=== PATIENT | female | born 1990 | race African-American/Black ===

== ENCOUNTER 2016-12-24 13:19 | Emergency (ER) | payer SELFPAY ==
[~2016-12-24] VITALS: Ht 162.6 cm; Wt 81.8 kg
[~2016-12-24 13:19] MED LIST: (None)3.5 GM OP; AMOXICILLIN500 MG OR; AMOXICILLIN500 MG PO; CEPHALEXIN500 MG PO; CIPRODEX1 ML AS; CORTISPORIN OP7.5 ML OP; DOXYCYCL HYC100 MG PO; FLOXIN OTIC0.3 % OT; LORTAB 5/3255 MG PO; METHERGINE0.2 MG PO; NO MEDS; PREVACID30 M1 OR; REGLAN10 MG OR; TOPAMAX25 MG PO; ULTRAM50 M1 PO
[2016-12-24] MEDS ORDERED: MOTRIN400 MG PO (14:27)
[2016-12-24] MEDS ORDERED: AUGMENTIN875TAB PO (14:27)
[2016-12-24 14:30] VITALS: BP 128/75
== END 2016-12-24 14:30 | disposition home or self-care (01) | DRG 159 ==
LOC: ED 13:19
DX: K08.89 Other specified disorders of teeth and supporting structures (principal); K03.81 Cracked tooth

== ENCOUNTER → 2018-07-09 | Outpatient (REF) | payer OTHER ==
[~2018-07-09] MED LIST changes: +AUGMENTIN875TAB PO; +MOTRIN400 MG PO
== END | disposition home or self-care (01) ==
LOC: LAB 08:36
PROVIDERS: ATTEND Obstetrics & Gynecology
DX: Z34.82 Encounter for supervision of other normal pregnancy, second trimester (principal)

== ENCOUNTER 2019-12-07 16:52 | Observation (INO) | payer SELFPAY ==
[~2019-12-07] VITALS: Ht 162.6 cm; Wt 89.8 kg
--- NOTE | 2019-12-07 16:55 | NUR ---
PATIENT SEEN IN TRIAGE AND IS AWATING ROOM ASSIGNMENT
--- NOTE | 2019-12-07 17:48 | NUR ---
PATIENT TO ROOM 9 FOR EXAM MD NOTIFIED OF PATIENT STATUS
--- NOTE | 2019-12-07 18:30 | NUR ---
AFTER TWO ATTEMPTS OF TRYING TO START IV AND WAS UNSUCCESSFUL, ASSISTANCE IS ASKED FROM CHARGE NURSE. MD NOTIFIED OF TREATMENT DELAY
--- NOTE | 2019-12-07 18:50 | NUR ---
GAVE REPORT TO CARI Holley
[2019-12-07 19:26] LABS: HEMATOCRIT 36.1 % (37.0-47.0); HEMOGLOBIN 11.1 g/dl (12.0-16.0); IMMATURE GRANULOCYTES 0.4 % (0.0-5.0); MEAN CORPUSCULAR HGB 25.5 pG CALC (26.0-32.0); MEAN CORPUSCULAR HGB CONC 30.7 g/dL CAL (32.0-36.0); NEUT# 13.6 thou/uL (2.00-7.15); RED BLOOD COUNT 4.36 mill/uL (4.20-5.60)
[2019-12-07 19:29] LABS: MEAN CELL VOLUME 82.8 fL CALC (80.0-100.0)
[2019-12-07 19:30] LABS: URINE BILIRUBIN - DIPSTICK NEGATIVE (NEGATIVE); URINE BLOOD DIPSTICK NEGATIVE (NEGATIVE); URINE COLOR YELLOW; URINE GLUCOSE - DIPSTICK NEGATIVE (NEGATIVE); URINE KETONE NEGATIVE (NEGATIVE); URINE LEUK ESTERASE NEGATIVE (NEGATIVE); URINE NITRITE - DIPSTICK NEGATIVE (Negative); URINE PROTEIN - DIPSTICK NEGATIVE (NEG-TRACE); URINE SPECIFIC GRAVITY >=1.030; URINE UROBILINOGEN - DIPSTICK 0.2 E.U./dL (0.2)
[2019-12-07 19:38] LABS: ALBUMIN 4.9 g/dL (3.2-5.0); ALKALINE PHOSPHATASE 100 u/l (38-126); ANION GAP 14 (6-22 (CALC)); BILIRUBIN, TOTAL 0.5 mg/dL (0.0-1.4); BUN 9 mg/dL (7-17); BUN/CREATININE RATIO 11 (12-20 (CALC)); CARBON DIOXIDE 25 mmol/l (22-30); CHLORIDE 102 mmol/l (95-108); CREATININE 0.8 mg/dL (0.5-1.0); GFR > 60 ML/MIN (>=60 (CALC)); GFR FOR AFR.AMER. > 60 ML/MIN (>=60 (CALC)); LIPASE 47 u/l (23-300); POTASSIUM 4.1 mmol/l (3.5-5.1); SGOT/AST 24 u/l (14-36); SODIUM 136 mmol/l (137-146); TOTAL PROTEIN 8.1 g/dL (6.3-8.2)
--- NOTE | 2019-12-07 21:20 | NUR ---
PATIENT MEDICATED FOOR PAIN PER PHYSICIAN ORDR AT PATIENT REQUEST, NO S/S OF DISTRESS NOTED, RESPIRATIONS EVEN AND UNLABORED, FAMILY AT BEDSIDE, PATIENT AWAKE AND ALERT, AWAITING INPATIENT BED.
--- NOTE | 2019-12-07 21:25 | NUR ---
HAND OFF REPORT GIVEN TO CESAR ELLIS, PATIENT TO INATIENT ROOM VIA STRETCHER.
--- NOTE | 2019-12-07 21:40 | NUR ---
PT RECEIVED FROM ED TO ROOM 261. ARRIVES VIA STRETCHER ACCOMPANIED BY Rush MILLAN RN. PT AMBULATORY TO BED. GAIT STEADY AND BALANCED. PT DENIES PAIN AT THIS TIME. ORIENTED TO UNIT, ROOM, CALL ZHAO, LIGHTS, TV. ICE CHIPS PROVIDED. PT TO BE NPO AT MIDNIGHT, PT VERBALIZES UNDERSTANDING AND AGREEMENT. CALL [facility] WITHIN REACH. AGREES TO CALL PRN.
[2019-12-07 21:50] VITALS: BP 117/70
--- NOTE | 2019-12-07 22:00 | NUR ---
ADMISSION AND PHYSICAL ASSESMENT COMPLETE. PT CURRENTLY DENIES PAIN OR DISCOMFORT. PT DENIES ANY NEEDS AT THIS TIME. PLAN OF CARE REVIEWED, PT DENIES QUESTIONS, VERBALIZES UNDERSTANDING. ITEMS WITHIN REACH, BED LOCKED IN LOW POSITION W/ BEDRAILS UP X2. CALL [facility]HAO WITHIN REACH, AGREES TO CALL PRN.
[2019-12-08] VITALS (8 sets, daily range): BP systolic 101–131; BP diastolic 46–77
--- NOTE | 2019-12-08 | NUR ---
PT NPO FOR OR IN AM AT THIS TIME.
--- NOTE | 2019-12-08 00:04 | NUR ---
DR. SANTOS INFORMED OF LACTIC ACID OF 2.6mmol/L REPORTED @ 12/07/19 6647. ADDITIONAL 1 LITER NS BOLUS ORDERED. SEE E-MAR FOR ADMINISTRATION.
--- NOTE | 2019-12-08 02:05 | NUR ---
PT APPEARS TO BE SLEEPING COMFORTABLY, NO APPARENT DISTRESS, RESPIRATIONS REGULAR AND UNLABORED. ITEMS REMAIN WITHIN REACH, BED REMAINS LOCKED IN LOW POSITION W/ BEDRAILS UP X2. CALL ZHAO REMAINS WITHIN REACH.
--- NOTE | 2019-12-08 06:13 | NUR ---
OR NURSE CALLS, STATES THEY WILL BE COMING TO [facility] PT IN APPROXIMATELY 30 MINUTES. PT MADE AWARE. ALERTED OR TO RESP PCR RESULTS: NEG CV-19, POS FOR RHINO VIRUS.
--- NOTE | 2019-12-08 06:34 | NUR ---
OR NURSE TO UNIT TO TAKE PT TO OR VIA STRETCHER.
--- NOTE | 2019-12-08 07:51 | NUR ---
PT REPORT RECEIVED. PT IS IN OR.
--- NOTE | 2019-12-08 10:53 | NUR ---
PT RECEIVED FROM [facility] AT 1004 FROM PACU. RN REPORTED DIFFICULTY MAINTAINING STABLE OXIDATION IN RECOVERY. PTS O2 LEVELS MAINTAING AT 93% ON ROOM AIR. ELECTRICAL FOREMAN REPORTED PT HAS RHINOVIRUS MAKING IT SOMETIMES DIFFICULT FORE HER TO BREATH THROUGH HER NOSE. PT IS IN STABLE CONDITION. VITALS ASSESSED, SCD'S REAPPLIED TO PT. PT A&O X3; PT VOIDED 250 CC ON THE BSC. PT VERBALIZED PAIN AT 10-10 ON PAIN SCALE. PT STATED THAT SHE HAD NO APPETITE AT THIS TIME. PT INSTRUCTED TO CALL FOR ANY CONCERNS. CALL [facility]HAO PLACED WITHIN REACH. WILL CONTINUE TO MONITOR.
--- NOTE | 2019-12-08 12:55 | NUR ---
PT LAYING IN BED RESTING, NO APPARENT DISTRESS, RESPIRATIONS REG & UNLABORED. PT STILL EXPERIENCING NAUESA. PT REQUESTED AN ENSURE FOR LUNCH. PT DENIES ANY OTHER NEEDS AT THIS TIME. ITEMS WITHIN REACH BED LOCKED IN LOW POSITION W/ BEDRAILS UP X2. CALL ZHAO WITHIN REACH, AGREES TO CALL PRN.
--- NOTE | 2019-12-08 14:39 | NUR ---
PT CONTINUES BEFORE WITH MILD SYMTOMS OF NAUSEA. NO EVIDENCE OF DISTRESS. PT IS ALERT AND ORIENTED X3. PT VERBLIZES THE NEED TO CALL FOR ANY NEEDS. CALL [facility]HAO WITHIN REACH. WILL CONTINUE TO MONITOR.
--- NOTE | 2019-12-08 18:00 | NUR ---
IV site discontinued, cath intact. No edema , no redness, voices no discomfort.
--- NOTE | 2019-12-08 18:21 | NUR ---
Discharge instructions given. Patient verbalizes understanding of same. Discharged in stable condition via Ambulatory to Home with significant other. All belongings sent with pt.
== END 2019-12-08 18:19 | disposition home or self-care (01) | DRG 343 ==
LOC: ED 16:52 → ED-I 20:37 → ED 20:52 → ED-I 20:53 → MS2 21:06
PROVIDERS: Student in an Organized Health Care Education/Training Program; ADMIT Surgery; ATTEND Surgery
PROC: 0DTJ4ZZ Resection of Appendix, Percutaneous Endoscopic Approach (ICD-10-PCS; principal; 2019-12-08)
DX: K35.30 Acute appendicitis with localized peritonitis, without perforation or gangrene (principal); Z20.828 Contact with and (suspected) exposure to other viral communicable diseases
CPT/HCPCS: G0378; J0131; J2710; Q9967

== ENCOUNTER 2020-06-20 17:03 | Emergency (ER) | payer SELFPAY ==
[~2020-06-20] VITALS: Ht 162.6 cm; Wt 100.0 kg
[2020-06-20] MEDS ORDERED: CLEOCIN300 MG PO (17:51)
[2020-06-20] MEDS ORDERED: HYDROCO/APAP1 TA9 PO (17:51)
[2020-06-20] MEDS ORDERED: IBUPROFEN600 MG PO (17:51)
[2020-06-20 17:58] VITALS: BP 139/82
== END 2020-06-20 17:58 | disposition home or self-care (01) | DRG 159 ==
LOC: ED 17:03
DX: K04.7 Periapical abscess without sinus (principal); K01.1 Impacted teeth

== ENCOUNTER 2021-02-05 17:12 | Emergency (ER) | payer SELFPAY ==
[~2021-02-05] VITALS: Ht 162.6 cm; Wt 79.0 kg
[~2021-02-05 17:12] MED LIST changes: +CLEOCIN300 MG PO; +HYDROCO/APAP1 TA9 PO; +IBUPROFEN600 MG PO
[2021-02-05] MEDS ORDERED: ZPAK PO (17:56)
[2021-02-05] MEDS ORDERED: FLONASE AL50 MCG/ACT (17:56)
[2021-02-05 18:06] VITALS: BP 150/78
== END 2021-02-05 18:06 | disposition home or self-care (01) | DRG 153 ==
LOC: ED 17:12
DX: J32.9 Chronic sinusitis, unspecified (principal); F17.200 Nicotine dependence, unspecified, uncomplicated

== ENCOUNTER 2021-12-18 09:10 | Emergency (ER) | payer BC ==
[~2021-12-18] VITALS: Ht 162.6 cm; Wt 75.0 kg
[2021-12-18] VITALS (7 sets, daily range): BP systolic 104–137; BP diastolic 40–76
[~2021-12-18 09:10] MED LIST changes: +FLONASE AL50 MCG/ACT; +ZPAK PO
[2021-12-18 09:36] LABS: HEMATOCRIT 32.9 % (37.0-47.0); HEMOGLOBIN 9.6 g/dl (12.0-16.0); MEAN CORPUSCULAR HGB 22.7 pG CALC (26.0-32.0); MEAN CORPUSCULAR HGB CONC 29.2 g/dL CAL (32.0-36.0); NEUT# 7.88 thou/uL (2.00-7.15); RED BLOOD COUNT 4.22 mill/uL (4.20-5.60); RED CELL DISTRI WIDTH 16.7 % (11.5-15.5)
[2021-12-18 09:54] LABS: IMMATURE GRANULOCYTES 0.1 % (0.0-5.0)
[2021-12-18 10:09] LABS: ALKALINE PHOSPHATASE 83 u/l (38-126); BUN 5 mg/dL (7-17); BUN/CREATININE RATIO 7 (12-20 (CALC)); CHLORIDE 108 mmol/l (95-108); CREATININE 0.8 mg/dL (0.5-1.0); GFR FOR AFR.AMER. > 60 ML/MIN (>=60 (CALC)); GFR OTHER RACES > 60 ML/MIN (>=60 (CALC)); LIPASE 68 u/l (23-300); POTASSIUM 3.5 mmol/l (3.5-5.1); SGOT/AST 17 u/l (14-36); SODIUM 137 mmol/l (137-146)
[2021-12-18 10:10] LABS: ALBUMIN 3.9 g/dL (3.2-5.0); ANION GAP 14 (6-22 (CALC)); BILIRUBIN, TOTAL 0.1 mg/dL (0.0-1.4); CARBON DIOXIDE 19 mmol/l (22-30)
[2021-12-18 10:49] LABS: BETA-HCG, QUANT(RESULT NUMBER) 32236 mIU/mL
[2021-12-18 12:51] LABS: URINE BILIRUBIN - DIPSTICK NEGATIVE (NEGATIVE); URINE BLOOD DIPSTICK TRACE-INTACT (NEGATIVE); URINE COLOR YELLOW; URINE GLUCOSE - DIPSTICK 250 mg/dL (NEGATIVE); URINE KETONE NEGATIVE (NEGATIVE); URINE LEUK ESTERASE NEGATIVE (NEGATIVE); URINE NITRITE - DIPSTICK NEGATIVE (Negative); URINE PH 5.5 (4.5-8.0); URINE PROTEIN - DIPSTICK NEGATIVE (NEG-TRACE); URINE UROBILINOGEN - DIPSTICK 0.2 E.U./dL (0.2)
== END 2021-12-18 14:54 | disposition short-term general hospital (02) | DRG 831 ==
LOC: ED 09:10
PROVIDERS: Family Medicine
PROC: 05HM33Z Insertion of Infusion Device into Right Internal Jugular Vein, Percutaneous Approach (ICD-10-PCS; principal; 2021-12-18)
PROC: B543ZZA Ultrasonography of Right Jugular Veins, Guidance (ICD-10-PCS; 2021-12-18)
DX: O00.90 Unspecified ectopic pregnancy without intrauterine pregnancy (principal); A41.9 Sepsis, unspecified organism; R65.21 Severe sepsis with septic shock; O08.82 Sepsis following ectopic and molar pregnancy; O99.331 Smoking (tobacco) complicating pregnancy, first trimester; F17.200 Nicotine dependence, unspecified, uncomplicated; Z3A.08 8 weeks gestation of pregnancy
CPT/HCPCS: P9016; Q9967

== ENCOUNTER 2024-08-01 18:36 | Emergency (ER) | payer SELFPAY ==
[~2024-08-01] VITALS: Ht 162.6 cm; Wt 78.9 kg
[2024-08-01] MEDS ORDERED: Pantoprazole Sodium 40 MG VIAL (Protonix) IV STA (20:54)
[2024-08-01] MEDS ORDERED: SODIUM CHLORIDE 0.9% 1,000 ML IV STA (20:54)
[2024-08-01] MEDS ORDERED: ALUM & MAG HYDROX-SIMETHICONE 30 ML PO ONE (20:55)
[2024-08-01] MEDS ORDERED: LIDOCAINE VISCOUS 2% 15 ML UDC PO ONE (20:55)
[2024-08-01 21:14] LABS: BASO% 0.6 % (0-3); EOS% 2.6 % (0-8); HEMATOCRIT 32.1 % (37.0-47.0); HEMOGLOBIN 9.9 g/dl (12.0-16.0); IMMATURE GRANULOCYTES 0.2 % (0.0-5.0); LYMPH% 26.2 % (15-41); MEAN CELL VOLUME 76.1 fL CALC (80.0-100.0); MEAN CORPUSCULAR HGB 23.5 pG CALC (26.0-32.0); MEAN CORPUSCULAR HGB CONC 30.8 g/dL CAL (32.0-36.0); MONO% 5.4 % (2-13); NEUT# 8.27 thou/uL (2.00-7.15); RED BLOOD COUNT 4.22 mill/uL (4.20-5.60); RED CELL DISTRI WIDTH 15.7 % (11.5-15.5)
[2024-08-01 21:28] LABS: ALBUMIN 4.8 g/dL (3.2-5.0); BILIRUBIN, TOTAL 0.3 mg/dL (0.02-1.3); CREATININE 0.9 mg/dL (0.5-1.0); POTASSIUM 3.9 mmol/l (3.5-5.1); TOTAL PROTEIN 8.6 g/dL (6.3-8.2)
[2024-08-02] MEDS ORDERED: PROMETHAZINE HY25 M1 PO (00:04)
[2024-08-02 00:15] VITALS: BP 130/76
== END 2024-08-02 00:15 | disposition home or self-care (01) | DRG 446 ==
LOC: ED 18:36
PROVIDERS: Family Medicine
DX: K80.20 Calculus of gallbladder without cholecystitis without obstruction (principal); F17.200 Nicotine dependence, unspecified, uncomplicated
CPT/HCPCS: J2470; Q9967